=== PATIENT | female | born 1960 | race Caucasian/White ===

== ENCOUNTER 2021-07-18 22:54 | Emergency (ER) | payer OTHER ==
[2021-07-18] MEDS ORDERED: lidocaine 1% 20 ML MDV SUBQ ONE (23:40)
[2021-07-18] MEDS ORDERED: LIDOCAINE-MPF 1% 5 ML VIAL ONE (23:53)
--- NOTE | 2021-07-19 00:23 | XRAY Report ---
PROCEDURE: Foot 2 View RT INDICATIONS: R 1st and 2nd toe injury with nail disruption TECHNIQUE: 2 views of the foot were acquired. COMPARISON: None. FINDINGS: Bones: No fractures or dislocations. No suspicious bony lesions. Soft tissues: There is a small linear calcification dorsal to the first proximal phalanx distally in the lateral projection. No radiopaque foreign bodies. IMPRESSION: 1. No definite fracture or dislocation. 2. Small linear calcification dorsal to the first proximal phalanx distally is nonspecific. Findings may reflect sequelae of a prior avulsion injury or dystrophic calcifications. Reviewed by: Osei Simpson MD on 07/19/2021 12:24 AM PDT Approved by: Osei Simpson MD on 07/19/2021 12:24 AM PDT Station ID: [id number]
[2021-07-19] MEDS ORDERED: HYDROcod/ACET 5/325 Prepack 4 PO STA (00:27)
--- NOTE | 2021-07-19 00:30 | ED Physician Documentation ---
PD HPI LOWER EXT INJURY - Stated complaint Stated Complaint: R FT INJ - Chief complaint Chief Complaint: Ext Problem - History obtained from History obtained from: Patient - History of Present Illness PD HPI LOW EXT INJURY LOCATION: Right, Toe (Great) - Additional information Additional information: Patient presenting with injury to her right great toe. She was in the bathroom and slipped and banged her foot against the wall.She had injury to the nail of the right great toe. Her tetanus is up-to-date. She denies blood thinner use. She has been able to ambulate and drove herself to the emergency department.The pain is sharp and worse with movement. It is better at rest. There is no other radiation to the pain. 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 : None HEENT: None Psych: None Musculoskeletal: None Derm: None - Past Surgical History Past Surgical History: No - Present Medications Home Medications: Ambulatory Orders Medication Instructions Recorded Confirmed No Known Home Medications 07/18/21 07/18/21 - Allergies Allergies/Adverse Reactions: Allergies Allergy/AdvReac Type Severity Reaction Status Date / Time No Known Drug Allergies Allergy Verified 07/18/21 23:05 - Social History Does the pt smoke?: No Smoking Status: Never smoker Does the pt drink ETOH?: No Does the pt have substance abuse?: No - Immunizations Immunizations are current?: No Immunizations: TDAP >10years/unknown - POLST Patient has POLST: No PD ED PE NORMAL - General General: Alert and oriented X 3, No acute distress, Well developed/nourished - HEENT HEENT: Atraumatic, Moist mucous membranes - Neck Neck: Supple, no meningeal sign - Cardiac Cardiac: RRR, Strong equal pulses - Respiratory Respiratory: No respiratory distress, Clear bilaterally - Derm Derm: Warm and dry - Extremities Extremities: Other (Partial nail avulsion to right great toe.Nail appears from the matrix and Remains affixed at the lateral Proximal nail fold) Results - Vitals Vitals: Vital Signs - 24 hr 07/18/21 07/19/21 23:02 00:42 Temperature 36.3 C L 36.4 C L Heart Rate 71 69 Respiratory 17 16 Rate Blood Pressure 140/78 H 135/71 H O2 Saturation 97 98 Oxygen O2 Source Room air Procedures - Laceration (location) Toe right Wound type: Other (Partial nail avulsion) Neurovascular status: Sensory intact, Motor intact, Vascular intact Anesthesia: Lidocaine 1% Wound preparation: Betadine, Irrigated copiously NS Skin layer closure: Dermabond (Dermabond utilized to reaffix nail in proper position At nail folds) Other: Patient tolerated well, No complications, Neurovascular intact, Dressing applied, Tetanus UTD PD MEDICAL DECISION MAKING - ED course ED course: Patient with injury to right great toe. No fracture seen on x-ray.The nail overall is intact but from nail bed. It was reaffixed with Dermabond at nail fold borders. Patient is aware that she will likely lose this nail but that it will continue to offer protection to the bone and skin underlying.Her Tetanus is up-to-date.Patient is aware of wound Care instructions and return precautions. Departure - Departure Disposition: 01 Home, Self Care Clinical Impression: Injury of right great toe Qualifiers: Encounter type: initial encounter Qualified Code(s): S99.921A - Unspecified injury of right foot, initial encounter Condition: Stable Instructions: ED Crush Injury Toe No Fx, ED Laceration Ext Skin Glue Comments: You were treated for an injury to your right great toe. The x-ray does not show a broken bone. There was injury to the nail In the nail bed.Special glue was used to keep the nail in place.It will likely eventually fall off.Wear loose fitting shoes.Keep a bulky dressing on the toe for the next several days to protect it.Keep the area clean and dry.Please follow-up with a primary care physician in 3-5 days To recheck the wound. Return to the emergency department with any concerns for infection. You were given pain medication. Please do not drive or operate machinery while using this medication. Discharge Date/Time: 07/19/21 00:42
[2021-07-19 00:43] VITALS: BP 135/71
== END 2021-07-19 00:42 | disposition home or self-care (01) ==
LOC: ED 22:54
DX: S91.211A Laceration without foreign body of right great toe with damage to nail, initial encounter (principal); W22.01XA Walked into wall, initial encounter; Y92.002 Bathroom of unspecified non-institutional (private) residence as the place of occurrence of the external cause
CPT/HCPCS: 96372; 99282; 99283